=== PATIENT | female | born 1995 | race Caucasian/White ===

== ENCOUNTER 2018-02-10 01:35 | Emergency (ER) | payer OTHER ==
[2018-02-10] MEDS ORDERED: IBUPROFEN 600 MG TABLET PO ONE (03:07)
[2018-02-10] MEDS ORDERED: ACETAMINOPHEN 325 MG TABLET PO ONE (03:07)
[2018-02-10 03:30] LABS: HEMATOCRIT 37.9 % (36.0-47.0)
--- NOTE | 2018-02-10 03:31 | ER Document Report ---
ED General - General Chief Complaint: Abdominal Pain Stated Complaint: ABDOMINAL PAINS Time Seen by Provider: 02/10/18 02:53 Notes: She is a 22-year-old female who presents to the emergency department with lower abdominal pain. It started this morning at 1:00 in the morning. She states the pain is a sharp pain that comes and goes. She has not taken any medication for the pain. Nothing makes the pain better. Moving around makes the pain worse. She states pain feels similar to when she had a burst ovarian cyst before. She does see her primary care doctor for her previous ovarian cyst, but she is only prescribed 800 mg of Motrin for the pain and has not taken any for this event. She denies any nausea, vomiting, diarrhea. TRAVEL OUTSIDE OF THE [place] IN LAST 30 DAYS: No Past Medical History - General Information source: Patient - Social History Smoking Status: Never Smoker Frequency of alcohol use: None Drug Abuse: None Family History: Reviewed & Not Pertinent Review of Systems - Review of Systems Notes: REVIEW OF SYSTEMS: CONSTITUTIONAL : Denies recent illness. Denies recent unintentional weight loss. Denies fever, chills, or sweats. EENT: Denies eye, ear, throat, or mouth pain, discharge, or symptoms. Denies nasal or sinus congestion. CARDIOVASCULAR: Denies chest pain. RESPIRATORY: Denies shortness of breath, cough, congestion, difficulty breathing , or wheezing. GASTROINTESTINAL: Denies nausea, vomiting, and diarrhea. Denies abdominal pain. Denies constipation. Last BM: GENITOURINARY: Denies difficulty urinating, burning, blood in urine, urgency or frequency. FEMALE GENITOURINARY: See HPI MUSCULOSKELETAL: Denies neck and back pain. Denies joint pain or swelling. SKIN: Denies rash, itchiness, or lesions HEMATOLOGIC : Denies easy bruising or bleeding. LYMPHATIC: Denies swollen, painful, enlarged glands. NEUROLOGICAL: Denies no numbness or tingling denies weakness. Denies headache. Denies altered mental status. Denies alteration in speech. PSYCHIATRIC: Denies stress, anxiety, alteration in sleep patterns, or depression. All other systems reviewed and negative. Physical Exam - Vital signs Vitals: Temp Pulse Resp BP Pulse Ox 98.5 F 101 H 16 130/83 H 99 02/10/18 01:58 02/10/18 01:58 02/10/18 01:58 02/10/18 01:58 02/10/18 01:58 - Notes Notes: Exam PHYSICAL EXAMINATION: GENERAL: Appears well, healthy, well-nourished, no acute distress. HEAD: Normocephalic, atraumatic. EYES: PERRL, conjunctiva normal, all extraocular movements intact, sclera nonicteric ENT: Moist mucous membranes. NECK: Supple, no noticeable swelling, redness, rash. Normal range of motion. LUNGS: Equal breath sounds bilaterally and clear to auscultation. No wheezes rales or rhonchi. CARDIOVASCULAR: S1-S2, regular rate, regular rhythm. Radial pulses 2+, normal. ABDOMEN: Normoactive bowel sounds. Soft, lower abdominal tenderness, mild guarding, and no masses palpated. EXTREMITIES: Normal strength and range of motion, no pitting or edema. No cyanosis. NEUROLOGICAL: Moves all extremities upon command. Strength 5/5 in all extremities. PSYCH: Normal mood, normal affect. SKIN: Warm, dry. No rash, lesions, ulcerations noted. Normal skin turgor. Course - Re-evaluation Re-evalutation: Differential diagnosis includes: Pelvic inflammatory disease, ovarian cyst, ovarian torsion, ectopic , and ruptured ectopic . 02/10/18 04:22 Patient's laboratory studies show a mild right shift leukocytosis of 11,000. Awaiting transvaginal ultrasound results. 02/10/18 04:28 I have spoke with Dr. Joshi, the radiologist reading her ultrasound. He states her blood flow appears to be good per Doppler. She does have an ovarian cyst per Transvaginal ultrasound. 02/10/18 04:40 Have discussed the results of the transvaginal ultrasound with the patient. I have advised her that she needs to follow-up with her primary care doctor and have a repeat transvaginal ultrasound in 8-10 weeks. I do not suspect patient has any life-threatening issues at this time. She is stable for discharge. Verbal discharge instructions were given to the patient. She verbalized understanding of those instructions. - Vital Signs Vital signs: Temp Pulse Resp BP Pulse Ox 98.2 F 71 16 107/60 99 02/10/18 05:24 02/10/18 05:24 02/10/18 01:58 02/10/18 05:24 02/10/18 05:24 - Laboratory Result Diagrams: 02/10/18 03:22 02/10/18 03:22 Laboratory results interpreted by me: 02/10/18 02/10/18 03:22 03:22 WBC 11.4 H Seg Neuts % (Manual) 38 L Lymphocytes % (Manual) 56 H Abs Lymphs (Manual) 6.4 H Carbon Dioxide 20 L Discharge - Discharge Clinical Impression: Abdominal pain Qualifiers: Abdominal location: lower abdomen, unspecified Qualified Code(s): R10.30 - Lower abdominal pain, unspecified Condition: Stable Disposition: HOME, SELF-CARE Additional Instructions: You have been seen in the emergency department for abdominal pain. Your abdominal pain is caused by ovarian cyst in the right ovary. Please see your primary care doctor in regards to this visit and to have a repeat transvaginal ultrasound in 8-10 weeks. May take Motrin 600 mg and Tylenol 1000 mg every 6 hours as needed for the pain during the day. You have been prescribed Phenergan and Toradol as needed for your pain at night. Please take these medications as needed, and as directed. If you feel your symptoms are getting worse, develop a fever greater than than 100.4 F, begin vomiting, or have any symptoms that are worrisome to you, please report to the emergency department. Prescriptions: Ketorolac Tromethamine [Toradol 10 mg Tablet] 10 mg PO Q6HP PRN #20 tablet PRN Reason: Promethazine HCl [Phenergan 25 mg Tablet] 1 tab PO Q6H PRN #15 tablet PRN Reason:
[2018-02-10 03:34] LABS: HEMOGLOBIN 12.9 g/dL (12.0-15.5); MEAN CORPUSCULAR HEMOGLOBIN 28.6 pg (27.0-33.4); MEAN CORPUSCULAR VOLUME 84 fl (80-97); PLATELET COUNT 362 10^3/uL (150-450); RED CELL DISTRIBUTION WIDTH 13.8 % (11.5-14.0); WHITE BLOOD COUNT 11.4 10^3/uL (4.0-10.5)
[2018-02-10 03:45] LABS: ABSOLUTE LYMPHOCYTES# (MANUAL) 6.4 10^3/uL (0.5-4.7); ABSOLUTE MONOCYTES # (MANUAL) 0.7 10^3/uL (0.1-1.4); ABSOLUTE NEUTROPHILS# (MANUAL) 4.3 10^3/uL (1.7-8.2); BASOPHILS % (MANUAL) 0 % (0-2); EOSINOPHILS % (MANUAL) 0 % (0-6); LYMPHOCYTES % (MANUAL) 56 % (13-45); MONOCYTES % (MANUAL) 6 % (3-13); SEGMENTED NEUTROPHILS % (MAN) 38 % (42-78); TOTAL CELLS COUNTED 100
[2018-02-10 03:46] LABS: PLATELET COMMENT ADEQUATE; RBC MORPHOLOGY COMMENT NORMO-CYTIC/CHROMIC
[2018-02-10 03:51] LABS: ALANINE AMINOTRANSFERASE 38 U/L (9-52); ALBUMIN 3.9 g/dL (3.5-5.0); ALKALINE PHOSPHATASE 87 U/L (38-126); ANION GAP 13 (5-19); ASPARTATE AMINO TRANSFERASE 26 U/L (14-36); BILIRUBIN,DIRECT 0.3 mg/dL (0.0-0.4); BILIRUBIN,TOTAL 0.5 mg/dL (0.2-1.3); BLOOD UREA NITROGEN 12 mg/dL (7-20); CALCIUM 9.6 mg/dL (8.4-10.2); CARBON DIOXIDE 20 mmol/L (22-30); CHLORIDE 107 mmol/L (98-107); GLUCOSE 82 mg/dL (75-110); POTASSIUM 4.3 mmol/L (3.6-5.0); SODIUM 139.8 mmol/L (137-145); TOTAL PROTEIN 6.8 g/dL (6.3-8.2)
[2018-02-10 04:12] LABS: APPEARANCE,URINE SLIGHTLY-CLOUDY; BILIRUBIN,URINE NEGATIVE (NEGATIVE); COLOR,URINE YELLOW; GLUCOSE, URINE NEGATIVE (NEGATIVE); KETONES,URINE NEGATIVE (NEGATIVE); LEUKOCYTE ESTERASE,URINE NEGATIVE (NEGATIVE); NITRITE,URINE NEGATIVE (NEGATIVE); PROTEIN,URINE NEGATIVE (NEGATIVE); URINE SPECIFIC GRAVITY 1.016; UROBILINOGEN,URINE NEGATIVE mg/dL (<2.0)
--- NOTE | 2018-02-10 04:21 | RADIOLOGY REPORT (SQ) ---
CLINICAL HISTORY: lower abdominal pain COMPARISON: None. TECHNIQUE: US TRANSVAGINAL on 02/10/2018 3:05 AM INTERIOR SPECIALIST FINDINGS: Uterus measures 8 cm in greatest diameter. The uterus is normal in echotexture. Endometrial stripe measures 6 mm. There is small amount of free pelvic fluid. Right ovary measures 5.3 x 2.9 x 3.1 cm. There is a complex cyst measuring 3.1 x 1.3 x 1.8 cm. Left ovary is not seen. IMPRESSION: Small complex right ovarian cyst. Consider follow-up ultrasound in 8-10 weeks.
[2018-02-10 05:30] VITALS: BP 107/60
== END 2018-02-10 05:29 | disposition home or self-care (01) ==
LOC: EDBD → ER 01:35
DX: R10.30 Lower abdominal pain, unspecified (principal)
CPT/HCPCS: 36415; 76830; 80053; 81001; 81025; 85025; 93976; 99284